=== PATIENT | male | born 1965 | race Caucasian/White ===

== ENCOUNTER 2021-02-12 11:07 | Emergency (ER) | payer BC, SELFPAY ==
[2021-02-12 11:29] LABS: Absolute Lymphocytes (CBC) 1.1 K/uL (0.7-4.9); Basophils % 0.9 % (0-1.3); Hematocrit 48.8 % (39.6-49.0); Lymphocytes % 13.8 % (15.3-44.8); MPV 8.6 fL (7.6-11.3); RBC Red Blood Cell Count 5.89 M/uL (4.33-5.43)
[2021-02-12 11:45] LABS: Albumin 3.9 g/dL (3.4-5.0); Bilirubin Direct 0.2 mg/dL (0-0.2); Bilirubin Total 0.8 mg/dL (0.2-1.0); Potassium 3.6 mmol/L (3.5-5.1); Protein, Total 7.2 g/dL (6.4-8.2)
[2021-02-12 11:48] LABS: Protime INR 0.98
--- NOTE | 2021-02-12 12:11 | RAD REPORT ---
EXAM DESCRIPTION: CT - Chest Abdomen Pelvis W Cont - 02/12/2021 11:37 am CLINICAL HISTORY: BLUNT CHEST TRAUMA, chest pain, abdominal and pelvic pain COMPARISON: No comparisons TECHNIQUE: Following dynamic enhancement using 100 milliliters nonionic IV contrast, axial imaging o f the chest, abdomen and pelvis was performed. Biphasic technique was utilized through the abdomen. No oral contrast administered. All CT scans are performed using dose optimization technique as appropriate and may include automated exposure control or mA/KV adjustment according to patient size. FINDINGS: Trace amounts of atelectasis are present. No pulmonary contusion or acute lung parenchymal process seen. No pneumothorax or hemothorax. No aorta of pulmonary artery injury identifiable. Media stinal and hilar regions show no mass or abnormal lymphadenopathy. No chest wall mass or axillary lym phadenopathy. Nondisplaced anterior left sixth rib fracture is present. No other rib fracture confirm ed. Thoracic endplate degenerative spurring seen in the lower thoracic spine. No compression fracture . Sternum is intact. Left clavicle is intact. Right clavicle is only partially imaged. Shoulder joint s are only partially imaged. The liver, spleen and pancreas show no suspicious findings. Liver shows a mild fatty infiltration pat tern. Gallbladder and biliary tree are unremarkable. Gallstones can be occult on CT imaging. Symmetr ic renal function is seen with no mass or hydronephrosis. No adrenal abnormalities. No acute injury to the bowel. No free air, free fluid or stranding in the peritoneal or retroperitone al spaces. Fat filled right inguinal hernia present. No lumbar compression fracture. Patient has advanced L5-S1 degenerative change with prominent spurrin g projecting into the central canal. Bilateral foraminal stenosis is present. No spinous process or t ransverse process fracture. Bony pelvis is intact. The acute angulation at the sacrum coccyx junction is not acute. No significant vascular findings. IMPRESSION: Nondisplaced anterior left sixth rib fracture. No pneumothorax, pulmonary contusion or a ssociated injury. CT abdomen and pelvis imaging showing no acute bone or soft tissue finding. Patient has prominent deg enerative change in the spine and the liver is fatty infiltrated.
--- NOTE | 2021-02-12 12:23 | EDPHYS ---
Physician Documentation [facility] Name: Charbel Younger Age: 55 yrs Sex: Male : 1965 Arrival Date: 02/12/2021 Time: 11:08 Bed 20 Private MD: ED Physician Steve Tariq HPI: 02/12 11:12 This 55 yrs old Male presents to ER via Unassigned with complaints of chest corn popper. 11:12 The patient or guardian reports chest pain that is located primarily in the anterior rn chest wall, left lateral anterior chest. Onset: The symptoms/episode began/occurred just prior to arrival. The pain does not radiate. Associated signs and symptoms: Pertinent negatives: abdominal pain, cough, diaphoresis, near syncope, shortness of breath, syncope. The chest pain is described as sharp, stabbing. Duration: The patient or guardian reports multiple episodes, that are intermittent. Modifying factors: The symptoms are alleviated by remaining still, the symptoms are aggravated by deep breath, palpation of area. Severity of pain: At its worst the pain was moderate in the emergency department the pain is unchanged. The patient has not experienced similar symptoms in the past. The patient has not recently seen a physician. Reports standing on ground, guiding garsia, hit by large metal object, described to be a rossy of some sort, hit left torso, reports pain to left lower ribs and worse with deep inspiration or palpation. Denies head injury or LOC, no neck or back pain. No extremity injury. Ambulatory. No blood thinners. . Historical: - Allergies: 11:30 No Known Allergies; bw - PMHx: 11:30 Hypertension; bw - Immunization history:: Adult Immunizations unknown. - Social history:: Smoking status: unknown. - Family history:: not pertinent. - Hospitalizations: : No recent hospitalization is reported. ROS: 11:12 Constitutional: Negative for fever, chills, and weight loss, Eyes: Negative for injury, rn pain, redness, and discharge, ENT: Negative for injury, pain, and discharge, Neck: Negative for injury, pain, and swelling, Cardiovascular: + left chest trauma and pain Respiratory: Negative for shortness of breath, cough, wheezing Abdomen/GI: Negative for abdominal pain, nausea, vomiting, diarrhea, and constipation, Back: Negative for injury and pain, : Negative for injury, bleeding, discharge, and swelling, MS/Extremity: Negative for injury and deformity, Skin: Negative for injury, rash, and discoloration, Neuro: Negative for headache, weakness, numbness, tingling, and seizure. Exam: 11:12 Constitutional: This is a well developed, well nourished patient who is awake, alert, rn and in no acute distress. Ambulatory out of stretcher and into bed. Head/Face: Normocephalic, atraumatic. Eyes: Pupils equal round and reactive to light, extra-ocular motions intact. Lids and lashes normal. Conjunctiva and sclera are non-icteric and not injected. Cornea within normal limits. Periorbital areas with no swelling, redness, or edema. Neck: Trachea midline, no masses palpated, no vertebral point tenderness. Chest/axilla: Normal chest wall appearance and motion. + mild tenderness left anterior/lateral chest wall without crepitus or ecchymosis Cardiovascular: Regular rate and rhythm. No pulse deficits. Respiratory: No increased work of breathing, no retractions or nasal flaring. Abdomen/GI: soft, non-tender, no ecchymosis or discoloration. Back: No spinal tenderness. No costovertebral tenderness. Full range of motion. Skin: Warm, dry MS/ Extremity: Pulses equal, no cyanosis. Neuro: Awake and alert, GCS 15, oriented to person, place, time, and situation. Cranial nerves II-XII grossly intact. Motor strength 5/5 in all extremities. Sensory grossly intact. Cerebellar exam normal. Normal gait. Vital Signs: 11:10 BP 164 / 78; Pulse 98; Resp 20; Temp 98; Pulse Ox 98% ; Pain 8/10; bw 12:32 BP 145 / 74; Pulse 84; Resp 18; Pulse Ox 98% on R/A; bw MDM: 11:08 Patient medically screened. rn 12:21 Differential diagnosis: Blunt Chest Trauma Chest Wall Contusion Pneumothorax Pulmonary rn Contusion Rib Fracture. Data reviewed: vital signs, nurses notes, lab test result(s), radiologic studies, CT scan, and as a result, I will discharge patient. Counseling: I had a detailed discussion with the patient and/or guardian regarding: the historical points, exam findings, and any diagnostic results supporting the discharge/admit diagnosis, lab results, radiology results, the need for outpatient follow up, to return to the emergency department if symptoms worsen or persist or if there are any questions or concerns that arise at home. Response to treatment: the patient's symptoms have mildly improved after treatment, and as a result, I will discharge patient. Special discussion: Based on the patient's history, exam, and Dx evaluation, there is no indication for emergent intervention or inpatient Tx. It is understood by the patient/guardian that if the Sx's persist or worsen they need to return immediately for re-evaluation. I discussed with the patient/guardian in detail that at this point there is no indication for admission to the hospital. It is understood, however, that if the symptoms persist or worsen the patient needs to return immediately for re-evaluation. 02/12 11:09 Order name: CBC with Diff; Complete Time: 11:52 rn 02/12 11:09 Order name: Basic Metabolic Panel; Complete Time: 11: 02/12 11:09 Order name: Protime (+inr); Complete Time: 11: rn 02/12 11:09 Order name: Ptt, Activated; Complete Time: 11: rn 02/12 11:09 Order name: LFT's; Complete Time: 11: rn 02/12 11:09 Order name: Lipase; Complete Time: 11: rn 02/12 11:09 Order name: CT Chest, Abdomen, Pelvis - W/Contrast; Complete Time: 12:12 rn 02/12 11:09 Order name: IV Start; Complete Time: 11:11 rn Administered Medications: 12:30 Drug: [place] 10 mg-325 mg 1 tabs Route: PO; bw Disposition: 02/12/21 12:22 Discharged to Home. Impression: Fracture of one rib, left side. - Condition is Stable. - Discharge Instructions: Rib Fracture. - Prescriptions for Tylenol- Codeine #3 300-30 mg Oral Tablet - take 1 tablet by ORAL route every 4-6 hours As needed; 15 tablet. - Medication Reconciliation Form, Thank You Letter, Antibiotic Education, Prescription Opioid Use form. - Work release form (02/13/21 09:06). as - Follow up: Private Physician; When: As needed; Reason: Recheck today's complaints, Re-evaluation by your physician. - Problem is new. - Symptoms have improved. Signatures: Dispatcher [employer] EDMS Steve Tariq MD MD rn Baxter, Heather, RN RN Gertrude Nails RN RN bw Martinez, Amelia as Corrections: (The following items were deleted from the chart) 11:14 11:12 Constitutional: Negative for fever, chills, and weight loss, Eyes: Negative for rn injury, pain, redness, and discharge, ENT: Negative for injury, pain, and discharge, Neck: Negative for injury, pain, and swelling, Cardiovascular: + left chest trauma and pain Respiratory: Negative for shortness of breath, cough, wheezing, and pleuritic chest pain, Abdomen/GI: Negative for abdominal pain, nausea, vomiting, diarrhea, and constipation, Back: Negative for injury and pain, : Negative for injury, bleeding, discharge, and swelling, MS/Extremity: Negative for injury and deformity, Skin: Negative for injury, rash, and discoloration, Neuro: Negative for headache, weakness, numbness, tingling, and seizure, rn 12:38 12:22 02/12/2021 12:22 Discharged to Home. Impression: Fracture of one rib, left side. hb Condition is Stable. Forms are Medication Reconciliation Form, Thank You Letter, Antibiotic Education, Prescription Opioid Use. Follow up: Private Physician; When: As needed; Reason: Recheck today's complaints, Re-evaluation by your physician. Problem is new. Symptoms have improved. rn
--- NOTE | 2021-02-12 12:23 | ER ---
Nurse's Notes [facility] Name: Charbel Younger Age: 55 yrs Sex: Male : 1965 Arrival Date: 02/12/2021 Time: 11:08 Bed 20 Private MD: Diagnosis: Fracture of one rib, left side Presentation: 02/12 11:10 Chief complaint: EMS states: blunt force hit by 300 lb object to left side of chest. bw C/o dyspnea when taking a deep breath and pain /10. MD at on arrival. Coronavirus screen: Client denies travel out of the [place] in the last 14 days. At this time, the client does not indicate any symptoms associated with coronavirus-19. Ebola Screen: No symptoms or risks identified at this time. Initial Sepsis Screen: Does the patient meet any 2 criteria? No. Patient's initial sepsis screen is negative. Does the patient have a suspected source of infection? No. Patient's initial sepsis screen is negative. Risk Assessment: Do you want to hurt yourself or someone else? Patient reports no desire to harm self or others. Onset of symptoms was February 12, 2021 at 10:45. Mechanism of Injury: blunt force trauma. 11:10 Method Of Arrival: EMS: [facility] 11:10 Acuity: [facility] 2 bw Historical: - Allergies: 11:30 No Known Allergies; bw - PMHx: 11:30 Hypertension; bw - Immunization history:: Adult Immunizations unknown. - Social history:: Smoking status: unknown. - Family history:: not pertinent. - Hospitalizations: : No recent hospitalization is reported. Screenin:30 Abuse screen: Denies threats or abuse. Nutritional screening: No deficits noted. bw Tuberculosis screening: No symptoms or risk factors identified. Fall Risk None identified. Assessment: 11:30 General: Appears in no apparent distress. uncomfortable, Behavior is calm, cooperative, bw appropriate for age. Pain: Complains of pain in anterior aspect of left upper chest and diaphragm. Neuro: No deficits noted. Cardiovascular: No deficits noted. Respiratory: No deficits noted. Respiratory: Reports pain with respiration Airway is patent. GI: No deficits noted. : No deficits noted. Musculoskeletal: Reports pain in left lateral anterior chest. Injury Description: blunt force injury to left side of chest. 12:30 Reassessment: Patient appears in no apparent distress at this time. Patient and/or bw family updated on plan of care and expected duration. Pain level reassessed. Patient is alert, oriented x 3, equal unlabored respirations, skin warm/dry/pink. Vital Signs: 11:10 BP 164 / 78; Pulse 98; Resp 20; Temp 98; Pulse Ox 98% ; Pain 8/10; bw 12:32 BP 145 / 74; Pulse 84; Resp 18; Pulse Ox 98% on R/A; bw ED Course: 11:08 Patient arrived in ED. ll1 11:08 Steve Tariq MD is Attending Physician. rn 11:08 Gertrude Nails, DARREN is Primary Nurse. 11:29 Triage completed. 11:30 Patient has correct armband on for positive identification. Call light in reach. bw classroom monitor on. Pulse ox on. NIBP on. 11:30 No provider procedures requiring assistance completed. Maintain EMS IV. Dressing bw intact. Good blood return noted. Site clean \T\ dry. Thermoregulation: warm blanket given to patient. 11:37 CT Chest, Abdomen, Pelvis - W/Contrast In Process Unspecified. EDMS 12:32 Patient pt given dc instructions on pain management. bw 12:32 IV discontinued, intact, bleeding controlled, Pressure dressing applied. bw Administered Medications: 12:30 Drug: Loop 10 mg-325 mg 1 tabs Route: PO; Outcome: 12:22 Discharge ordered by . rn 12:32 Discharged to home bw 12:32 Condition: stable 12:32 Discharge instructions given to patient. 12:38 Patient left the ED. Signatures: Dispatcher [employer] EDMS Steve Tariq MD MD rn Baxter, Heather RN RN Dimple Alvarez RN RN [facility] Gertrude Nails RN RN
[2021-02-12] MEDS ORDERED: HYDROCODONE/APAP 10/325 TAB ONE (12:42)
[2021-02-12 12:54] VITALS: TEMP 98; O2SAT 98
[2021-02-12 12:55] VITALS: BP 145/74
== END 2021-02-12 12:38 | disposition home or self-care (01) ==
LOC: ER 11:07
DX: S22.32XA Fracture of one rib, left side, initial encounter for closed fracture (principal); W31.89XA Contact with other specified machinery, initial encounter; Y93.89 Activity, other specified; Y92.89 Other specified places as the place of occurrence of the external cause; Y99.8 Other external cause status; I10 Essential (primary) hypertension
CPT/HCPCS: 36415; 71260; 74177; 80048; 80076; 82565; 83690; 85025; 85610; 85730; 99284; Q9967